=== PATIENT | male | born 1970 | race Two or more races ===

== ENCOUNTER → 2017-04-24 | Outpatient (CLI) | payer OTHER ==
[~2017-04-24] MED LIST: CIPR500T19 PO; CIPR500T3 PO; TYLE650T35 PO
[2017-04-24 13:15] LABS: ANION GAP 7 MEQ/L (8-16); BLOOD UREA NITROGEN 18 MG/DL (7-18); CALCIUM LEVEL 9.4 MG/DL (8.5-10.1); CARBON DIOXIDE LEVEL 29 MEQ/L (21-32); CHLORIDE LEVEL 104 MEQ/L (98-107); CREATININE FOR GFR 1.13 MG/DL (0.70-1.30); GLOMERULAR FILTRATION RATE > 60.0 (>60); GLUCOSE, FASTING 102 MG/DL (70-105); POTASSIUM SERUM 4.8 MEQ/L (3.5-5.1); SODIUM LEVEL 140 MEQ/L (136-145)
== END ==
LOC: M SMT 09:30
PROVIDERS: ATTEND Nurse Practitioner Women's Health
DX: Z12.5 Encounter for screening for malignant neoplasm of prostate (principal); R31.0 Gross hematuria
CPT/HCPCS: 36415; 80048; G0103

== ENCOUNTER → 2017-04-24 | Outpatient (REF) | payer OTHER | LOC: M SMT 13:04 | PROVIDERS: ATTEND Nurse Practitioner Women's Health | DX: R31.0 Gross hematuria (principal) | CPT/HCPCS: 36415; 80048; 81001; 87086; 88108; G0103; G0463 ==

== ENCOUNTER → 2017-05-01 | Outpatient (CLI) | payer OTHER ==
[~2017-05-01] MED LIST changes: +ISOVUE-370 76% 100ML VIAL (Q9967) As Ordered ONE
--- NOTE | 2017-05-02 04:55 | REP ---
Clinical: Hematuria. Technique: Axial precontrast, contrast enhanced, and delayed images of the abdomen and pelvis using 100 ml Isovue 370 intravenous contrast material with coronal and sagittal re-formations. Findings: Evaluation of the urinary tract system demonstrates 3 cm bladder stone. The bilateral kidneys and ureters are normal in all phases of enhancement and without perinephric stranding, hydroureteronephrosis, intrarenal or obstructing ureteral calculi. Diffuse fatty infiltration to the liver noted without focal hepatic lesion. Spleen, pancreas, gallbladder, and bilateral adrenal glands are normal. The enteric system is without obstruction or acute inflammatory process. Pelvis demonstrates bladder as described above including 3 cm bladder stone as well as mild mass effect from prominent prostate gland measuring roughly 4.4 cm maximal diameter. No ascites. No adenopathy. No free air. No obvious mass lesion. Vasculature is normal. Surrounding musculoskeletal structures are intact. Impression: 3 cm bladder stone. Otherwise normal urinary tract system. Mildly prominent prostate gland. No further acute abdominopelvic pathology appreciated. Signed by Dominguez Reed MD 05/02/2017 04:47 A
== END ==
LOC: M RAD 16:14 → EDUNIT# 16:30
PROVIDERS: ATTEND Nurse Practitioner Women's Health
DX: R31.0 Gross hematuria (principal); N21.0 Calculus in bladder; N40.0 Benign prostatic hyperplasia without lower urinary tract symptoms
CPT/HCPCS: 74178; Q9967

== ENCOUNTER → 2017-05-06 | Outpatient (CLI) | payer OTHER ==
[~2017-05-06] MED LIST changes: -ISOVUE-370 76% 100ML VIAL (Q9967) As Ordered ONE
[2017-05-06 16:25] LABS: MEAN CORPUSCULAR HEMOGLOBIN 32.4 pg (27.0-33.0); MEAN CORPUSCULAR VOLUME 92.6 fl (80.0-96.0); RED CELL DISTRIBUTION WIDTH 12.1 % (11.5-14.5); WHITE BLOOD COUNT 6.3 K/mm3 (4.0-10.0)
[2017-05-06 16:30] LABS: INR 0.99
[2017-05-06 16:39] LABS: ANION GAP 7 MEQ/L (8-16); BLOOD UREA NITROGEN 13 MG/DL (7-18); CALCIUM LEVEL 9.5 MG/DL (8.5-10.1); CARBON DIOXIDE LEVEL 30 MEQ/L (21-32); CHLORIDE LEVEL 103 MEQ/L (98-107); CREATININE FOR GFR 1.32 MG/DL (0.70-1.30); GLOMERULAR FILTRATION RATE > 60.0 (>60); GLUCOSE, FASTING 96 MG/DL (70-105); POTASSIUM SERUM 4.8 MEQ/L (3.5-5.1); SODIUM LEVEL 140 MEQ/L (136-145)
--- NOTE | 2017-05-06 19:32 | ECGEPIP ---
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 Clinical correlation advised Electronically Signed On 05-06-2017 19:32:13 EDT by Hugo Garibay
--- NOTE | 2017-05-07 01:46 | REP ---
Clinical: Hematuria . Comparison: None . Technique: PA and lateral. Findings: The mediastinum and cardiac silhouette are normal. The lung khan are clear and without acute consolidation, effusion, or pneumothorax. The skeletal structures are intact and normal. Impression: 1. No acute cardiopulmonary process. Signed by Dominguez Reed MD 05/07/2017 01:38 A
== END ==
LOC: M LAB 15:38
PROVIDERS: ATTEND Urology
DX: Z01.818 Encounter for other preprocedural examination (principal); R31.0 Gross hematuria; N21.0 Calculus in bladder; R94.31 Abnormal electrocardiogram [ECG] [EKG]; R00.1 Bradycardia, unspecified

== ENCOUNTER 2017-05-08 12:13 | Day surgery (SDC) | payer OTHER ==
[~2017-05-08] VITALS: Ht 175.3 cm; Wt 95.3 kg
[~2017-05-08 12:13] MED LIST changes: -CIPR500T19 PO; -CIPR500T3 PO; +LIDOCAINE 2% INJ 100 MG/5 ML SYRINGE As Ordered ONE; +MIDAZOLAM INJ 2 MG/2 ML VIAL (J2250) As Ordered ONE; +PROPOFOL 200 MG/20 ML VIAL As Ordered ONE; -TYLE650T35 PO; +dexameTHASONE 4 MG/ML 1ML VIAL (J1100) As Ordered ONE; +fentaNYL 100 MCG/2 ML INJECTION (J3010) As Ordered ONE
[2017-05-08] MEDS ORDERED: LR 1,000 ML IV ONE (12:30)
[2017-05-08] MEDS ORDERED: CIPR500T19 PO (13:29)
[2017-05-08] MEDS ORDERED: CONRAY-60 60% 50ML VIAL (Q9961) As Ordered ONE (17:27)
[2017-05-08] MEDS ORDERED: fentaNYL 100 MCG/2 ML INJECTION (J3010) As Ordered ONE (18:34)
[2017-05-08] MEDS ORDERED: KETOROLAC 60 MG/2 ML VIAL (J1885) As Ordered ONE (18:46)
[2017-05-08] MEDS ORDERED: TYLE650T35 PO (18:55)
[2017-05-08] MEDS ORDERED: CIPR500T3 PO (18:55)
[2017-05-08] MEDS ORDERED: LR 1,000 ML IV SCH (19:15)
[2017-05-08] MEDS ORDERED: ONDANSETRON 4MG/2ML VIAL (J2405) IV PRN (19:15)
[2017-05-08] MEDS ORDERED: fentaNYL 100 MCG/2 ML INJECTION (J3010) IV PRN (19:15)
[2017-05-08] MEDS ORDERED: PERCOCET 5MG/325MG TAB PO PRN (19:15)
[2017-05-08 21:15] VITALS: BP 137/81
[2017-05-08] MEDS ORDERED: ACETAMINOPHEN 650MG ER TAB (TYLENOL ARTHRITIS) PO SCH (22:00)
[2017-05-09] MEDS ORDERED: CIPROFLOXACIN 500 MG TAB PO SCH (06:00)
--- NOTE | 2017-05-10 08:10 | RO ---
DATE OF PROCEDURE: 05/08/2017 PREPROCEDURE DIAGNOSIS: Bladder stone. POSTPROCEDURE DIAGNOSIS: Bladder stone. PROCEDURE: Cystoscopy, plus laser stone cystolitholapaxy with Holmium laser. SURGEON: Kahlil Mcrae MD COORDINATOR OF GENETIC SERVICES: None. ANESTHESIA: General. COMPLICATIONS: None. ESTIMATED BLOOD LOSS: N/A. HISTORY OF THE PRESENT ILLNESS: This is a 46-year-old male patient with a history of bladder stone, about 5 cm in diameter, having severe lower urinary tract symptoms (LUTS). Flexible cystoscopy in the clinic confirmed a large stone in the bladder. For this reason, he has consented for a cystoscopy, plus laser stone cystolitholapaxy with Holmium laser. DESCRIPTION OF PROCEDURE: In a patient under general anesthesia in supine modified low lithotomy position, after prepping and draping the area of concern, which included the entire genitalia and abdomen, we started by introducing a 21-[place] cystoscope with a 30-degree lens under videoendoscopic guidance. The fossa navicularis, penile urethra, bulbar urethra and membranous urethra were totally normal. The prostatic urethra had lateral lobes touching, one upper elevated bladder neck. Both ureteral orifices were seen. A very large stone occupying one-third of the bladder was seen 5 cm in diameter. We grabbed a Holmium laser 1000 probe and laser lithotripsied at a power of 0.6 and a rate of 30. We had to use two Holmium lasers, 1000 micron probe to finalize the pulverization of the stone. We then grabbed an [employer] evacuator and took out the pieces. Once we took out all the pieces, we took out the cystoscope. PLAN: The patient will go home today with antibiotic and pain medication, followup at [facility] [place] in 1-2 weeks. He has to take water intake for about 2-3 liters a day to prevent stone formation. Stones were sent for biochemical analysis. There were no complications of surgery.
[2017-05-23 00:06] LABS: Uric Acid 100 % (.)
== END 2017-05-08 21:25 ==
LOC: M SDC 12:13
PROVIDERS: ATTEND Urology
DX: N21.0 Calculus in bladder (principal); R31.0 Gross hematuria; N40.1 Benign prostatic hyperplasia with lower urinary tract symptoms; Z79.899 Other long term (current) drug therapy
CPT/HCPCS: 52318; 82360; 88300; J0690; J1100; J1885; J2250; J3010

== ENCOUNTER → 2017-05-22 | Outpatient (REF) | payer OTHER ==
[~2017-05-22] MED LIST changes: +CIPR500T19 PO; +CIPR500T3 PO; -LIDOCAINE 2% INJ 100 MG/5 ML SYRINGE As Ordered ONE; -MIDAZOLAM INJ 2 MG/2 ML VIAL (J2250) As Ordered ONE; -PROPOFOL 200 MG/20 ML VIAL As Ordered ONE; +TYLE650T35 PO; -dexameTHASONE 4 MG/ML 1ML VIAL (J1100) As Ordered ONE; -fentaNYL 100 MCG/2 ML INJECTION (J3010) As Ordered ONE
== END ==
LOC: M SMT 13:13
PROVIDERS: ATTEND Nurse Practitioner Women's Health
DX: N21.0 Calculus in bladder (principal)
CPT/HCPCS: 87086; G0463

== ENCOUNTER → 2017-06-25 | Outpatient (CLI) | payer OTHER ==
[2017-06-25 13:35] LABS: ANION GAP 7 MEQ/L (8-16); BLOOD UREA NITROGEN 19 MG/DL (7-18); CALCIUM LEVEL 8.9 MG/DL (8.5-10.1); CARBON DIOXIDE LEVEL 31 MEQ/L (21-32); CHLORIDE LEVEL 105 MEQ/L (98-107); CREATININE FOR GFR 1.18 MG/DL (0.70-1.30); GLOMERULAR FILTRATION RATE > 60.0 (>60); GLUCOSE, FASTING 113 MG/DL (70-105); MAGNESIUM LEVEL 1.9 MG/DL (1.8-2.4); PHOSPHORUS LEVEL 2.7 MG/DL (2.5-4.9); POTASSIUM SERUM 4.7 MEQ/L (3.5-5.1); SODIUM LEVEL 143 MEQ/L (136-145); URIC ACID 7.1 MG/DL (3.5-7.2)
== END ==
LOC: M SMT 09:40
PROVIDERS: ATTEND Nurse Practitioner Women's Health
DX: N21.0 Calculus in bladder (principal)

== ENCOUNTER → 2017-09-10 | Outpatient (CLI) | payer OTHER | LOC: M PAIN 11:15 | DX: M54.40 Lumbago with sciatica, unspecified side (principal); N40.0 Benign prostatic hyperplasia without lower urinary tract symptoms; Z79.899 Other long term (current) drug therapy | CPT/HCPCS: G0463 ==

== ENCOUNTER → 2017-10-21 | Outpatient (CLI) | payer OTHER | LOC: M PAIN 10:30 | DX: G89.29 Other chronic pain (principal); M54.40 Lumbago with sciatica, unspecified side; Z79.899 Other long term (current) drug therapy | CPT/HCPCS: G0463 ==

== ENCOUNTER → 2017-11-15 | Outpatient (CLI) | payer OTHER | LOC: M PAIN 10:45 | DX: M54.40 Lumbago with sciatica, unspecified side (principal); G89.29 Other chronic pain; Z79.899 Other long term (current) drug therapy | CPT/HCPCS: G0463 ==

== ENCOUNTER → 2017-12-03 | Outpatient (CLI) | payer OTHER | LOC: M PAIN 14:45 | DX: M53.3 Sacrococcygeal disorders, not elsewhere classified (principal); M54.40 Lumbago with sciatica, unspecified side; K21.9 Gastro-esophageal reflux disease without esophagitis; Z79.899 Other long term (current) drug therapy | CPT/HCPCS: G0463 ==

== ENCOUNTER → 2018-02-25 | Outpatient (CLI) | payer OTHER ==
[2018-02-25 13:33] LABS: URIC ACID 5.2 MG/DL (3.5-7.2)
== END ==
LOC: M SMT 08:09
DX: R82.99 Other abnormal findings in urine (principal)

== ENCOUNTER → 2018-03-06 | Outpatient (CLI) | payer OTHER | LOC: M RAD 13:14 | DX: R10.9 Unspecified abdominal pain (principal); Z87.442 Personal history of urinary calculi; R16.0 Hepatomegaly, not elsewhere classified; K76.0 Fatty (change of) liver, not elsewhere classified | CPT/HCPCS: 74176 ==

== ENCOUNTER → 2018-03-27 | Outpatient (CLI) | payer OTHER | LOC: M PAIN 14:30 | DX: M53.3 Sacrococcygeal disorders, not elsewhere classified (principal); M54.40 Lumbago with sciatica, unspecified side; Z79.899 Other long term (current) drug therapy | CPT/HCPCS: G0463 ==

== ENCOUNTER → 2018-05-21 | Outpatient (CLI) | payer OTHER | LOC: M PAIN 10:15 | DX: M53.3 Sacrococcygeal disorders, not elsewhere classified (principal); M54.40 Lumbago with sciatica, unspecified side; G89.29 Other chronic pain; Z79.899 Other long term (current) drug therapy | CPT/HCPCS: G0463 ==

== ENCOUNTER → 2018-11-07 | Outpatient (REF) | payer OTHER ==
[2018-11-07 13:21] LABS: APPEARANCE, URINE CLEAR (CLEAR); BACTERIA, URINE AUTO NEGATIVE (NEGATIVE); BILIRUBIN, URINE AUTO NEGATIVE (NEGATIVE); BLOOD, URINE BLOOD NEGATIVE (NEGATIVE); COLOR, URINE YELLOW (YELLOW); GLUCOSE, URINE (UA) AUTO NEGATIVE (NEGATIVE); KETONE, URINE AUTO NEGATIVE (NEGATIVE); LEUKOCYTE ESTERASE, URINE AUTO NEGATIVE (NEGATIVE); NITRITE, URINE AUTO NEGATIVE (NEGATIVE); PROTEIN, URINE AUTO NEGATIVE (NEGATIVE); RBC, URINE AUTO 1 /HPF (0-3); SPECIFIC GRAVITY URINE AUTO 1.019 (1.002-1.035); SQUAMOUS EPITHELIAL CELL UR AU 0 /HPF (0-6); UROBILINOGEN, URINE AUTO 0.2 mg/dL (0.0-2.0); WBC, URINE AUTO 0 /HPF (0-3)
== END ==
LOC: M SMT 13:00
PROVIDERS: ATTEND Nurse Practitioner Women's Health
DX: N40.1 Benign prostatic hyperplasia with lower urinary tract symptoms (principal)